=== PATIENT | male | born 1970 | race Caucasian/White ===

== ENCOUNTER → 2020-05-20 | Outpatient (CLI) | payer BC ==
--- NOTE | 2020-05-20 10:58 | RAD ---
EXAM: Abdomen, 2 views. HISTORY: Pain. COMPARISON: None. FINDINGS: Frontal upright and supine views of the abdomen are obtained. There are nondistended air-fi lled loops of bowel within the abdomen. There is no free air. There is incidental scoliosis. IMPRESSION: Nonobstructive bowel gas pattern. Electronically signed by: Mona Kelley MD (05/20/2020 10:56 AM) [id number]
== END ==
LOC: RAD 10:10
PROVIDERS: ATTEND Internal Medicine
DX: R10.11 Right upper quadrant pain (principal); M41.80 Other forms of scoliosis, site unspecified
CPT/HCPCS: 74019